=== PATIENT | male | born 1960 | race African-American/Black ===

== ENCOUNTER → 2017-04-20 | Outpatient (CLI) | payer OTHER ==
--- NOTE | 2017-04-20 16:07 | RAD ---
Right knee radiograph 04/20/2017 at 1522 hours Indication: Right knee strain for one week. Comparison: None available Technique: 3 views of the right knee are provided. Findings: There is no acute fracture or dislocation. No joint space narrowing. No soft tissue swelling. No osseous erosion or soft tissue gas. Bone mineralization is within normal limits. No knee joint effusion. Impression: No acute fracture or dislocation. No knee joint effusion.
== END | disposition home or self-care (01) ==
LOC: DXRADRC 15:18
PROVIDERS: ATTEND General Practice
DX: S83.91XA Sprain of unspecified site of right knee, initial encounter (principal); X58.XXXA Exposure to other specified factors, initial encounter; Y93.89 Activity, other specified; Y92.89 Other specified places as the place of occurrence of the external cause; Y99.8 Other external cause status
CPT/HCPCS: 73562

== ENCOUNTER 2022-02-06 22:22 | Emergency (ER) | payer SELFPAY ==
[~2022-02-06] VITALS: Ht 188 cm; Wt 77.6 kg
--- NOTE | 2022-02-06 22:39 | PHYS DOC ---
Adult General HPI HPI Patient is a 61-year-old male who presents after taking an unknown opiate at home requiring Narcan. Patient's significant other gave Narcan at home for which he responded well, and on initial arrival of EMS patient was doing better and declined transport to the hospital. Called EMS back about an hour after as patient became sleepy again. Upon arrival to the emergency department alert and oriented in no acute distress. Denies any headache, changes in vision, numbness/weakness/tingling. Denies any chest pain, shortness of breath, abdominal pain, nausea, vomiting. Otherwise asymptomatic. Review of Systems Review of Systems Review of systems otherwise unremarkable except noted in HPI Physical Exam Physical Exam Constitutional: Well developed, well nourished, no acute distress, non-toxic appearance. [] HENT: Normocephalic, atraumatic, bilateral external ears normal, oropharynx moist, no oral exudates, nose normal. [] Eyes: PERRLA, EOMI, conjunctiva normal, no discharge. [] Neck: Normal range of motion, no tenderness, supple, no stridor. [] Cardiovascular:Heart rate regular rhythm, no murmur [] Lungs & Thorax: Bilateral breath sounds clear to auscultation [] Abdomen: Bowel sounds normal, soft, no tenderness, no masses, no pulsatile masses. [] Skin: Warm, dry, no erythema, no rash. [] Extremities: No tenderness, no cyanosis, no clubbing, ROM intact, no edema. [] Neurologic: Alert and oriented X 3, normal motor function, normal sensory function, able to sit, stand and walk, no focal deficits noted. [] Psychologic: Affect normal, judgement normal, mood normal. [] EKG EKG [] Radiology/Procedures Radiology/Procedures [] Heart Score C/O Chest Pain: No Risk Factors: Risk Factors: DM, Current or recent (<one month) smoker, HTN, HLP, family history of CAD, obesity. Risk Scores: Risk Factors: DM, Current or recent (<one month) smoker, HTN, HLP, family history of CAD, obesity. Course & Med Decision Making Course & Med Decision Making Patient is a 61-year-old male who required Narcan at home after taking too much opioid Vital signs nonconcerning. Physical exam noted above. Observed in the emergency department On reassessment patient awake alert and oriented in no acute distress. Able to take p.o. States he is ready to go home and feels well Advised not to take any medications unless given by physician given health risks. Gave return precautions to the ED. Advised to follow-up on Wednesday with primary care physician Family grateful, verbalized understanding and agreed with plan of discharge [] Dragon Disclaimer Dragon Disclaimer This electronic medical record was generated, in whole or in part, using a voice recognition dictation system. Departure Departure: Impression: Primary Impression: Opioid overdose Disposition: HOME / SELF CARE / HOMELESS Condition: STABLE Referrals: PCP,NO (PCP) YUE MIRANDA MD Patient Instructions: Narcotic Overdose Additional Instructions: Thank you for coming into the emergency department tonight and allowing us to take care of you. Please read the attached information carefully to go over things we discussed. Please do not take any medications or substances not prescribed by a primary care physician as discussed cause serious health risks, disability and . Please follow-up on Wednesday with your primary care physician update on your ED visit. Please come back with new or concerning symptoms as discussed. HOLLI LEE MD Feb 06, 2022 22:39
[2022-02-06 23:56] VITALS: BP 108/68
== END 2022-02-06 23:57 | disposition home or self-care (01) ==
LOC: ER 22:22
DX: T40.2X1A Poisoning by other opioids, accidental (unintentional), initial encounter (principal); Y92.89 Other specified places as the place of occurrence of the external cause
CPT/HCPCS: 82947; 99283